=== PATIENT | male | born 1985 | race Caucasian/White ===

== ENCOUNTER 2021-03-24 14:21 | Emergency (ER) | payer OTHER ==
[2021-03-24] MEDS ORDERED: BACTRIM DS TAB1 EACH PO (19:06)
[2021-03-24] MEDS ORDERED: CEPHALEXIN500 M1 PO (19:06)
== END 2021-03-24 19:20 | disposition home or self-care (01) ==
LOC: ER1 14:21
DX: S90.812A Abrasion, left foot, initial encounter (principal); L03.116 Cellulitis of left lower limb; M25.522 Pain in left elbow; I10 Essential (primary) hypertension; Z23 Encounter for immunization; Z88.0 Allergy status to penicillin; V29.40XA Motorcycle driver injured in collision with unspecified motor vehicles in traffic accident, initial encounter; Y92.410 Unspecified street and highway as the place of occurrence of the external cause
CPT/HCPCS: 73590; 73630; 73700; 90471; 90715; 99284